=== PATIENT | male | born 1945 | race African-American/Black ===

== ENCOUNTER 2022-08-30 11:44 | Emergency (ER) | payer OTHER ==
[~2022-08-30] VITALS: Ht 182.9 cm; Wt 100.0 kg
[2022-08-30 11:54] VITALS: BP 167/82
[2022-08-30 13:22] LABS: BASOPHILS % 0.8 % (0.0-2.0); EOSINOPHILS % 1.3 % (0.0-5.0); HEMATOCRIT. 36.7 % (42.0-52.0); HEMOGLOBIN. 12.2 g/dL (14.0-18.0); LYMPHOCYTES % 25.6 % (20.0-50.0); MEAN CORPUSCULAR HEMOGLOBIN 29.7 pg (28.0-32.0); MEAN CORPUSCULAR VOLUME 89.3 fL (80.0-94.0); MEAN PLATELET VOLUME 7.1 fl (7.4-10.4); MONOCYTES % 7.5 % (2.0-8.0); NEUTROPHILS % 64.8 % (40.0-76.0); PLATELET 199 x1000/uL (130-400); RED BLOOD CELL COUNT 4.11 mill/uL (4.7-6.1); RED CELL DISTRIBUTION WIDTH 14.2 % (11.6-14.6)
[2022-08-30 13:28] LABS: CHLORIDE 110 mEq/L (98-107)
[2022-08-30 13:53] LABS: PROTHROMBIN TIME 10.4 sec (9.6-11.0)
[2022-08-30] MEDS ORDERED: ZOLP1.754 SL (14:10)
[2022-08-30 14:24] LABS: CLARITY URINE CLEAR (CLEAR); COLOR URINE YELLOW (YELLOW); KETONES URINE NEGATIVE (NEGATIVE); LEUKOCYTE ESTERASE URINE NEGATIVE (NEGATIVE); NITRITE URINE NEGATIVE (NEGATIVE); OCCULT BLOOD URINE NEGATIVE (NEGATIVE); PH URINE 5.5 (4.5-8.0); PROTEIN URINE 1+ (NEGATIVE); SPECIFIC GRAVITY URINE 1.014 (1.005-1.030); UROBILINOGEN URINE 0.2 E.U./dL (0.2-1.0)
== END 2022-08-30 14:26 | disposition home or self-care (01) ==
LOC: ER 11:44
DX: G47.00 Insomnia, unspecified (principal); F41.9 Anxiety disorder, unspecified; E78.00 Pure hypercholesterolemia, unspecified; I10 Essential (primary) hypertension
CPT/HCPCS: 36415; 71045; 80053; 81003; 83880; 84484; 85025; 93005; 99285

== ENCOUNTER 2025-03-09 15:20 | Emergency (ER) | payer OTHER ==
[~2025-03-09] VITALS: Ht 193 cm; Wt 89.0 kg
[~2025-03-09 15:20] MED LIST: IPRA3AMP9 NEB; P20 MT; ZOLP1.754 SL
[2025-03-09 16:41] LABS: BASOPHILS % 0.6 % (0.0-2.0); EOSINOPHILS % 0.2 % (0.0-5.0); HEMATOCRIT. 39.8 % (42.0-52.0); HEMOGLOBIN. 13.1 g/dL (14.0-18.0); LYMPHOCYTES % 13.2 % (20.0-50.0); MEAN PLATELET VOLUME 7.0 fl (7.4-10.4); MONOCYTES % 5.7 % (2.0-8.0); NEUTROPHILS % 80.3 % (40.0-76.0); PLATELET 209 x1000/uL (130-400); RED BLOOD CELL COUNT 4.32 mill/uL (4.7-6.1); RED CELL DISTRIBUTION WIDTH 14.4 % (11.6-14.6)
[2025-03-09 16:52] LABS: CREATININE 0.9 mg/dL (0.6-1.3); UREA NITROGEN BLOOD 8 mg/dL (9-23)
[2025-03-09] MEDS: DEXAMETHASONE 10 MG/ML VIAL IV ONE (17:22)
[2025-03-09 17:40] VITALS: PULSE 78; RESP 21; O2SAT 98
[2025-03-09] MEDS: IPRATROPIUM/ALBUTEROL 0.5-3(2.5)MG/3ML NEB HHN ONE (17:46)
[2025-03-09] MEDS ORDERED: PRED5TAB48 MT (18:50)
[2025-03-09] MEDS ORDERED: ALBU18HF2 IH (18:50)
[2025-03-09 19:16] VITALS: BP 138/78; PULSE 65; RESP 20; TEMP 36.8; O2SAT 100
== END 2025-03-09 19:30 | disposition home or self-care (01) ==
LOC: ER 15:34
DX: J45.901 Unspecified asthma with (acute) exacerbation (principal); I10 Essential (primary) hypertension; E78.00 Pure hypercholesterolemia, unspecified; E11.9 Type 2 diabetes mellitus without complications; Z79.899 Other long term (current) drug therapy
CPT/HCPCS: 99285; 96374; 71045; 80048; 85025; 36415; 94640; 93005; J1100; 94070; 94664